=== PATIENT | male | born 1945 | race African-American/Black ===

== ENCOUNTER 2016-03-27 16:28 | Emergency (ER) | payer OTHER ==
[~2016-03-27] VITALS: Ht 172.7 cm; Wt 88.5 kg
[~2016-03-27 16:28] MED LIST: COLCRYS0.6 MG PO; FLEXERIL10 MG PO; INDOCIN25 MG PO; INDOCIN50 MG PO; LORTAB 5-325 M1 EACH PO; MOTRIN800 MG PO; MUCINEX1200 MG PO; NOHOMEMEDS; NORCO 7.5/321 TABLET PO; OXYCODONE HCL10 MG PO; OXYCODONE HCL30 MG PO; PERCOCET 5/31 TABLET PO; PREDNISONE20 MG PO; PROAIR HFA8.5 GM IH; STAGESIC 5-5001 EACH PO; VALIUM5 MG PO; VICODIN,LORT1 TABLET PO; ZITHROMAX Z-PA250 MG PO
[2016-03-27 21:02] LABS: BODY FLUID LDH 149 IU/L
[2016-03-27 21:22] LABS: BODY FLUID RBC'S 12000 /MM^3 (0-100); BODY FLUID WBC'S 17631 /MM^3 (0-500)
[2016-03-27 21:23] LABS: BODY FLUID EOSINOPHILS 0 % (0-25); MONO RAW COUNT 21; MONONUCLEAR WBC'S 21 %; POLY RAW COUNT 79; POLYNUCLEAR WBC'S 79 % (0-25)
[2016-03-27 21:29] LABS: TYPE OF FLUID ND
[2016-03-27] MEDS ORDERED: MOTRIN800 MG PO (22:07)
[2016-03-27] MEDS ORDERED: PREDNISONE50 MG PO (22:07)
[2016-03-27 22:34] VITALS: BP 135/90
== END 2016-03-27 22:35 | disposition home or self-care (01) ==
LOC: EME 16:28
PROVIDERS: Emergency Medicine
PROC: 0S9D3ZZ Drainage of Left Knee Joint, Percutaneous Approach (ICD-10-PCS; principal; 2016-03-27)
DX: M10.062 Idiopathic gout, left knee (principal); G89.29 Other chronic pain; Z79.891 Long term (current) use of opiate analgesic
CPT/HCPCS: 83615 91; 87205; 89051; 99281; 99284; J1885

== ENCOUNTER 2016-04-04 10:15 | Emergency (ER) | payer OTHER ==
[~2016-04-04] VITALS: Ht 172.7 cm; Wt 89.3 kg
[~2016-04-04 10:15] MED LIST changes: +PREDNISONE50 MG PO
[2016-04-04] MEDS ORDERED: ALLOPURINOL100 MG PO (12:40)
[2016-04-04] MEDS ORDERED: INDOCIN50 MG PO (12:40)
[2016-04-04 12:44] VITALS: BP 128/83
== END 2016-04-04 12:50 | disposition home or self-care (01) ==
LOC: EME 10:15 → RME 12:29
DX: M25.462 Effusion, left knee (principal); M10.9 Gout, unspecified
CPT/HCPCS: 99281; 99283; J1170

== ENCOUNTER 2016-04-06 05:03 | Emergency (ER) | payer OTHER ==
[~2016-04-06] VITALS: Ht 172.7 cm; Wt 85.9 kg
[~2016-04-06 05:03] MED LIST changes: +ALLOPURINOL100 MG PO
[2016-04-06 07:54] VITALS: BP 135/82
== END 2016-04-06 07:54 | disposition home or self-care (01) ==
LOC: EME 05:03
DX: M10.9 Gout, unspecified (principal); G89.29 Other chronic pain
CPT/HCPCS: 80048; 84484; 85027; 85610; 85730; 86850; 86900; 86901; 99281; 99284; J1170

== ENCOUNTER 2016-06-19 08:16 | Emergency (ER) | payer OTHER ==
[~2016-06-19] VITALS: Ht 172.7 cm; Wt 85.0 kg
[2016-06-19] MEDS ORDERED: FLEXERIL10 MG PO (11:51)
[2016-06-19 12:20] VITALS: BP 132/85
== END 2016-06-19 12:22 | disposition home or self-care (01) ==
LOC: EME 08:16
DX: S39.012A Strain of muscle, fascia and tendon of lower back, initial encounter (principal); W18.40XA Slipping, tripping and stumbling without falling, unspecified, initial encounter; G89.29 Other chronic pain; Z79.891 Long term (current) use of opiate analgesic
CPT/HCPCS: 72100; 73502; 99281; 99285; J1885; J3360; J7030

== ENCOUNTER 2016-12-23 08:14 | Emergency (ER) | payer OTHER ==
[~2016-12-23] VITALS: Ht 172.7 cm; Wt 84.0 kg
[2016-12-23] MEDS ORDERED: PEN-VEE K,VEET500 MG PO (08:34)
[2016-12-23] MEDS ORDERED: NAPROSYN500 MG PO (08:34)
[2016-12-23 08:53] VITALS: BP 161/99
[2016-12-23] MEDS ORDERED: LIDOCAINE20 MG/1 M5 PO (18:36)
== END 2016-12-23 08:53 | disposition home or self-care (01) ==
LOC: EME 08:14
DX: K02.9 Dental caries, unspecified (principal)
CPT/HCPCS: 99281; 99284; J1885

== ENCOUNTER 2016-12-23 16:39 | Emergency (ER) | payer OTHER ==
[~2016-12-23] VITALS: Ht 172.7 cm; Wt 84.4 kg
[~2016-12-23 16:39] MED LIST changes: +NAPROSYN500 MG PO; +PEN-VEE K,VEET500 MG PO
[2016-12-23] MEDS ORDERED: LIDOCAINE20 MG/1 M5 PO (18:36)
[2016-12-23 18:46] VITALS: BP 138/77
== END 2016-12-23 18:46 | disposition home or self-care (01) ==
LOC: EME 16:39
DX: K02.9 Dental caries, unspecified (principal); L08.9 Local infection of the skin and subcutaneous tissue, unspecified; G89.29 Other chronic pain; M54.2 Cervicalgia; Z79.891 Long term (current) use of opiate analgesic
CPT/HCPCS: 99281; 99284; J1885